=== PATIENT | female | born 1940 | race Caucasian/White ===

== ENCOUNTER 2025-06-23 15:05 | Emergency (ER) | payer MEDICARE, BC ==
[2025-06-23 16:02] LABS: MEAN PLATELET VOLUME 7.5 fL (7.1-12.4); PLATELET COUNT,PLT 383 x10(3)uL (151-488); RED BLOOD CELL COUNT 4.09 x10(6)uL (3.60-5.20); RED CELL DISTRIBUTION WIDTH 13.3 % (12.3-16.5); WHITE BLOOD CELL COUNT,WBC 16.5 x10-3/uL (3.0-10.3)
[2025-06-23 16:10] LABS: A/G RATIO 1.3; ALANINE AMINOTRANSFERASE,ALT 36 U/L (12-36); ASPARTATE AMNIOTRANSFERASE,AST 54 IU/L (5-25); BILIRUBIN TOTAL 2.0 mg/dL (0.1-1.3); BLOOD UREA NITROGEN,BUN 11 mg/dL (7-18); CARBON DIOXIDE,CO2 27 mmol/L (21-32); CREATININE 0.6 mg/dL (0.55-1.02); ESTIMATED GFR 88 mL/min (>60); GLUCOSE RANDOM 154 mg/dL (80-116); PROTEIN TOTAL,TP 7.2 g/dL (6.0-8.0)
[2025-06-23 16:20] LABS: PRO B-TYPE NATRIUR PEPT,BNPPRO 2971.0 pg/mL (<=450)
[2025-06-23 16:21] LABS: CHLORIDE,CL 73 mmol/L (100-110); POTASSIUM,K 2.6 mmol/L (3.5-5.3); SODIUM,NA 111 mmol/L (135-145)
[2025-06-23 16:26] LABS: BAND PERCENT MAN 2 % (0-6); LYMPHOCYTES PERCENT MAN 4 % (13-37); MONOCYTES PERCENT MAN 8 % (4-12); SEG NEUTROPHILS PERCENT MAN 86 % (46-82)
[2025-06-23] MEDS: Potassium Chloride 20 MEQ Tab.ER PO ONE (17:35)
[2025-06-23] MEDS: Magnesium Sulfate 2 GM/50 mL 2 GM in Premix Bag 1 BAG IV ONE (17:36)
[2025-06-23 18:10] LABS: GLUCOSE,URINE NORMAL (NORMAL); OCCULT BLOOD,URINE MODERATE (NEGATIVE)
[2025-06-23 18:18] LABS: APPEARANCE,URINE CLEAR (CLEAR)
[2025-06-23 18:19] LABS: SQUAMOUS EPITHELIAL CELLS,UR RARE (NS,R,O)
== END 2025-06-23 19:35 ==
LOC: FB.ED 15:05
DX: I48.91 Unspecified atrial fibrillation (principal); J90 Pleural effusion, not elsewhere classified; E87.1 Hypo-osmolality and hyponatremia; E83.41 Hypermagnesemia; I10 Essential (primary) hypertension; Z79.899 Other long term (current) drug therapy; R06.02 Shortness of breath
CPT/HCPCS: 36415; 71045; 80053; 81001; 83735; 83880; 84484; 85025; 93005; 93010; 96365; 96368; 99285; A9270; J3475; J3480; J7040